=== PATIENT | male | born 1950 | race Caucasian/White ===

== ENCOUNTER 2021-09-10 10:27 | Inpatient (IN) ==
[2021-09-10 10:56] LABS: Basophils # 0.1 K/mcL (0.0-0.2); Basophils % 0.6 %; Eosinophils # 0.2 K/mcL (0.0-0.6); Eosinophils % 1.5 %; Hemoglobin 12.6 g/dL (12.9-16.9); Immature Granulocytes % 0.4 % (0-4); Lymphocytes # 1.8 K/mcL (0.6-4.6); Lymphocytes % 16.7 %; Mean Corpuscular HGB Conc 33.2 g/dL (31.6-35.5); Mean Corpuscular Hemoglobin 31.9 pg (28.0-33.3); Mean Corpuscular Volume 96.2 fL (83.0-100.0); Mean Platelet Volume 10.1 fL (9.4-12.4); Monocytes # 1.5 K/mcL (0.0-1.3); Monocytes % 13.9 %; Neutrophils # 7.2 K/mcL (1.6-8.9); Platelet Count 222 K/mcL (140-400); Red Blood Count 3.95 M/mcL (4.19-5.50); Red Cell Distribution Width 13.7 % (11.5-14.5); Segmented Neutrophils % 66.9 %; White Blood Count 10.7 K/mcL (4.3-11.1)
[2021-09-10 11:04] LABS: INR 1.7; Prothrombin Time 19.1 Seconds (9.4-12.1)
[2021-09-10 11:06] LABS: Activated Partial Thrombo Time 34.5 Seconds (26.0-36.0)
[2021-09-10] MEDS ORDERED: Iopamidol - 370 500 ML MLS IVP ONE ×2 (11:30→12:12)
[2021-09-10 12:10] LABS: Calcium 8.3 mg/dL (8.6-10.3); Troponin I 0.43 ng/mL (< 0.04)
[2021-09-10] MEDS ORDERED: *HR* Heparin 5,000 UNIT/ML VIAL IVP ONE (13:27)
[2021-09-10] MEDS ORDERED: *HR* Heparin 5,000 UNIT/ML VIAL IVP PRN (13:27)
[2021-09-10] MEDS ORDERED: Heparin 25,000UNIT/250ML 1/2NS 25,000 UNIT/250 ML IV.SOLN IVC SCH (13:30)
[2021-09-10] MEDS: Heparin 25,000UNIT/250ML 1/2NS 25,000 UNIT/250 ML IV.SOLN IVC SCH (13:51)
[2021-09-10 14:23] LABS: INR 1.7; Prothrombin Time 18.6 Seconds (9.4-12.1)
[2021-09-10 14:30] LABS: Heparin anti-factor XA UFH 1.33 IU/mL (0.30-0.70)
[2021-09-10] MEDS ORDERED: Acetaminophen 325 MG TABLET PO PRN (15:25)
[2021-09-10] MEDS ORDERED: Naloxone 0.4 MG/ML INJ IVP PRN (15:25)
[2021-09-10] MEDS ORDERED: Ondansetron 4 MG/2 ML VIAL IVP PRN (15:25)
[2021-09-10] MEDS ORDERED: 0.9 % Sodium Chloride 1,000 ML IVC SCH (15:45)
[2021-09-11 05:21] LABS: Basophils # 0.1 K/mcL (0.0-0.2); Basophils % 0.7 %; Calcium 7.4 mg/dL (8.6-10.3); Chol/HDL Ratio 3.2 (0-4.9); Eosinophils # 0.3 K/mcL (0.0-0.6); Eosinophils % 2.9 %; Hematocrit 33.4 % (37.5-50.1); Immature Granulocytes % 0.5 % (0-4); Lymphocytes # 2.7 K/mcL (0.6-4.6); Lymphocytes % 27.2 %; Magnesium 1.8 mg/dL (1.6-2.6); Mean Corpuscular HGB Conc 32.3 g/dL (31.6-35.5); Mean Corpuscular Hemoglobin 31.2 pg (28.0-33.3); Mean Corpuscular Volume 96.5 fL (83.0-100.0); Mean Platelet Volume 10.5 fL (9.4-12.4); Monocytes # 1.4 K/mcL (0.0-1.3); Monocytes % 14.3 %; Neutrophils # 5.3 K/mcL (1.6-8.9); Platelet Count 202 K/mcL (140-400); Potassium 3.8 mEq/L (3.5-5.1); Red Blood Count 3.46 M/mcL (4.19-5.50); Red Cell Distribution Width 13.9 % (11.5-14.5); Segmented Neutrophils % 54.4 %; White Blood Count 9.8 K/mcL (4.3-11.1)
[2021-09-11 05:28] LABS: Hemoglobin 10.8 g/dL (12.9-16.9)
[2021-09-11] MEDS: *HR* Heparin 5,000 UNIT/ML VIAL IVP PRN ×2 (05:32→19:57)
[2021-09-11 05:53] LABS: Estimated Average Glucose 114 mg/dl; Hemoglobin A1C 5.6 %
[2021-09-11] MEDS ORDERED: *HR* OxyCODONE Immed Rel 5 MG TABLET PO PRN (07:30)
[2021-09-11] MEDS: Aspirin Enteric Coated 81 MG Tablet PO SCH (09:19)
[2021-09-11] MEDS: Gabapentin 300 MG CAPSULE PO SCH ×3 (09:19→19:55)
[2021-09-11] MEDS: Cholecalciferol (D-3) 1,000 UNIT (25MCG) TABLET PO SCH (09:19)
[2021-09-11] MEDS: Heparin 25,000UNIT/250ML 1/2NS 25,000 UNIT/250 ML IV.SOLN IVC SCH (11:34)
[2021-09-12 02:59] LABS: Hematocrit 33.7 % (37.5-50.1); Hemoglobin 11.1 g/dL (12.9-16.9); Mean Corpuscular HGB Conc 32.9 g/dL (31.6-35.5); Mean Corpuscular Hemoglobin 31.8 pg (28.0-33.3); Mean Corpuscular Volume 96.6 fL (83.0-100.0); Platelet Count 225 K/mcL (140-400); Red Blood Count 3.49 M/mcL (4.19-5.50); Red Cell Distribution Width 13.6 % (11.5-14.5); White Blood Count 11.1 K/mcL (4.3-11.1)
[2021-09-12 03:19] LABS: Calcium 7.6 mg/dL (8.6-10.3); Potassium 3.8 mEq/L (3.5-5.1)
[2021-09-12] MEDS: *HR* Heparin 5,000 UNIT/ML VIAL IVP PRN (03:36)
[2021-09-12] MEDS: Aspirin Enteric Coated 81 MG Tablet PO SCH (09:05)
[2021-09-12] MEDS: Cholecalciferol (D-3) 1,000 UNIT (25MCG) TABLET PO SCH (09:05)
[2021-09-12] MEDS: Gabapentin 300 MG CAPSULE PO SCH ×3 (09:05→21:40)
[2021-09-12] MEDS: Heparin 25,000UNIT/250ML 1/2NS 25,000 UNIT/250 ML IV.SOLN IVC SCH (09:43)
[2021-09-12] MEDS: *HR* Acetylcysteine 20% 600 MG/3 ML ORAL SYRINGE PO SCH ×2 (12:10→21:41)
[2021-09-12] MEDS: 0.9 % Sodium Chloride 1,000 ML IVC SCH (12:11)
[2021-09-13] MEDS: Heparin 25,000UNIT/250ML 1/2NS 25,000 UNIT/250 ML IV.SOLN IVC SCH (02:45)
[2021-09-13 03:26] LABS: Hematocrit 33.8 % (37.5-50.1); Mean Corpuscular HGB Conc 32.5 g/dL (31.6-35.5); Mean Corpuscular Hemoglobin 31.4 pg (28.0-33.3); Mean Corpuscular Volume 96.6 fL (83.0-100.0); Mean Platelet Volume 10.8 fL (9.4-12.4); Platelet Count 271 K/mcL (140-400); Red Cell Distribution Width 13.3 % (11.5-14.5); White Blood Count 10.7 K/mcL (4.3-11.1)
[2021-09-13 03:45] LABS: Calcium 7.7 mg/dL (8.6-10.3)
[2021-09-13] MEDS: 0.9 % Sodium Chloride 1,000 ML IVC SCH (09:16)
[2021-09-13] MEDS: Cholecalciferol (D-3) 1,000 UNIT (25MCG) TABLET PO SCH (09:17)
[2021-09-13] MEDS: Aspirin Enteric Coated 81 MG Tablet PO SCH (09:17)
[2021-09-13] MEDS: Gabapentin 300 MG CAPSULE PO SCH ×3 (09:17→21:19)
[2021-09-13] MEDS ORDERED: 0.9 % Sodium Chloride 2,000 ML ONE (10:27)
[2021-09-13] MEDS ORDERED: Nitroglycerin 1,000 MCG/5 ML VIAL IV ONE (10:27)
[2021-09-13] MEDS ORDERED: *HR* Heparin 10,000 UNIT/10 ML VIAL ONE (10:27)
[2021-09-13] MEDS ORDERED: Heparin 1,000 UNITS/500 mL 500 ML ONE (10:27)
[2021-09-13] MEDS ORDERED: Iopamidol - 370 200 ML INFUS..BTL ONE (10:27)
[2021-09-13] MEDS ORDERED: *HR* FentaNYL (PF) 100 MCG/2 ML VIAL ONE (10:39)
[2021-09-13] MEDS ORDERED: *HR* Midazolam HCl 2 MG/2 ML VIAL ONE (10:40)
[2021-09-13] MEDS: *HR* Acetylcysteine 20% 600 MG/3 ML ORAL SYRINGE PO SCH ×2 (13:15→21:18)
[2021-09-14 03:03] LABS: Hematocrit 32.7 % (37.5-50.1); Hemoglobin 10.8 g/dL (12.9-16.9)
[2021-09-14 03:19] LABS: BUN/Creatinine Ratio 11 (6-26); Blood Urea Nitrogen 20 mg/dL (8-23); eGFR For African Americans 46 (> 60); eGFR For Non-African Americans 38 (> 60)
[2021-09-14] MEDS: Gabapentin 300 MG CAPSULE PO SCH (07:47)
[2021-09-14] MEDS: Cholecalciferol (D-3) 1,000 UNIT (25MCG) TABLET PO SCH (07:47)
[2021-09-14 07:51] VITALS: O2SAT 98
[2021-09-14] MEDS ORDERED: Aspirin 81 MG TAB.CHEW PO SCH (09:00)
[2021-09-14 11:39] VITALS: BP 148/76; PULSE 67; TEMP 98.8
== END 2021-09-14 13:10 | disposition home or self-care (01) | DRG 247 ==
LOC: 2ANU 10:27 → EMEROOARM 10:27 → 2ANU 16:14 → SUATTDRO 17:26
PROVIDERS: ADMIT Internal Medicine; ATTEND Internal Medicine